=== PATIENT | female | born 1995 | race Caucasian/White ===

== ENCOUNTER 2018-07-03 08:10 | Emergency (ER) | payer OTHER, SELFPAY ==
[2018-07-03 08:12] VITALS: BP 136/82; PULSE 144; RESP 18; TEMP 37.7; O2SAT 96; BMI 38.9
[2018-07-03 08:21] VITALS: BP 134/74; PULSE 122; RESP 24; O2SAT 96; O2SAT 97
--- NOTE | 2018-07-03 08:35 | ED.VISSUMM ---
- ER Visit Summary Date of Service: 07/03/18 Chief Complaint: Fever History of Present Illness: The patient is a 22 F past family history of depression and asthma. Last started feeling ill with fever cough, sore throat and body aches. Saw her primary care physician on Tuesday Dr. Akash Chaudhary diagnosed with influenza and started on Tamiflu. Patient states she does not getting better. She has had a nonproductive cough. And a fever this morning as high as 103. No dysuria. No abdominal pain. No diarrhea. Physical Examination: Vital signs are stable. Temperature is 99. He does not look septic or toxic. Her pulse ox is 96% on room air. No hypoxia. HEENT exam dry mucous membranes otherwise unremarkable. TMs normal. Posterior pharynx unremarkable. Neck nontender. No lymphadenopathy. No meningismus. Lungs dry cough but no rales, rhonchi or currently any wheezing. Heart tachycardic rate about 130 no murmur. Abdomen is soft nontender. Normal bowel sounds no peritoneal signs. Both the right upper and right lower quadrants are unremarkable. Patient is moving all 4 extremities. They are neurovascularly intact. Nontender. There is no hot, red or swollen joints. Back nontender. Skin unremarkable. Neurologically awake and alert with no focal motor deficits. Test Results: Chest x-ray 2 views show left lower lobe infiltrate consistent with pneumonia. A menstrual cycle for 4 months so it was decided that we would check a serum level was negative. Emergency Department Course and Treatment: 1 L normal saline. Repeat exams at 0953 and 1055 patient is doing well. She is comfortable being discharged home. She is received a liter of normal saline. P.o. Zithromax. We will placed on Zithromax prescription at home. Treatment Plan: Fluids and rest. Alternate Tylenol and Motrin for fever. Zithromax Z-CHOLO. Follow-up with primary care physician if not improving. Disposition: Discharge Impression: Post influenza left lower lobe pneumonia. This note was generated with [employer] dictation software. It may contain incorrect words, spelling, and punctuation that were not noted in review of the chart prior to signing ED Disposition - Plan for ED Patient: Referrals: Akash Chaudhary III, MD [Primary Care Provider] -
--- NOTE | 2018-07-03 08:38 | ED.DCSUM_ITS ---
- ER Visit Summary Date of Service: 07/03/18 Chief Complaint: Fever History of Present Illness: The patient is a 22 F past family history of depression and asthma. Last started feeling ill with fever cough, sore throat and body aches. Saw her primary care physician on Tuesday Dr. Akash Chaudhary diagnosed with influenza and started on Tamiflu. Patient states she does not getting better. She has had a nonproductive cough. And a fever this morning as high as 103. No dysuria. No abdominal pain. No diarrhea. Physical Examination: Vital signs are stable. Temperature is 99. He does not look septic or toxic. Her pulse ox is 96% on room air. No hypoxia. HEENT exam dry mucous membranes otherwise unremarkable. TMs normal. Posterior pharynx unremarkable. Neck nontender. No lymphadenopathy. No meningismus. Lungs dry cough but no rales, rhonchi or currently any wheezing. Heart tachycardic rate about 130 no murmur. Abdomen is soft nontender. Normal bowel sounds no peritoneal signs. Both the right upper and right lower quadrants are unremarkable. Patient is moving all 4 extremities. They are neurovascularly intact. Nontender. There is no hot, red or swollen joints. Back nontender. Skin unremarkable. Neurologically awake and alert with no focal motor deficits. Test Results: Chest x-ray 2 views show left lower lobe infiltrate consistent with pneumonia. A menstrual cycle for 4 months so it was decided that we would check a serum level was negative. Emergency Department Course and Treatment: 1 L normal saline. Repeat exams at 0953 and 1055 patient is doing well. She is comfortable being discharged home. She is received a liter of normal saline. P.o. Zithromax. We will placed on Zithromax prescription at home. Treatment Plan: Fluids and rest. Alternate Tylenol and Motrin for fever. Zithromax Z-CHOLO. Follow-up with primary care physician if not improving. Disposition: Discharge Impression: Post influenza left lower lobe pneumonia. This note was generated with [email or web address] dictation software. It may contain incorrect words, spelling, and punctuation that were not noted in review of the chart pr ior to signing ED Disposition - Plan for ED Patient: Referrals: Akash Chaudhary III, MD [Primary Care Provider] -
--- NOTE | 2018-07-03 09:25 | RAD_ITS ---
STUDY: X-RAY CHEST REASON FOR EXAM: Female, 22 years old. Cough and fever. TECHNIQUE: PA and lateral views of the chest. COMPARISON: None. FINDINGS: Infiltration in the left lower lobe.. There is no demonstrated pleural abnormality. Normal size heart. Normal mediastinum and angela. Normal visualized pulmonary arteries. Normal visualized aortic arch and descending thoracic aorta. Normal visualized thoracic spine. Normal visualized ribs, clavicles, and shoulders. There is no demonstrated abnormality of the visualized soft tissue structures of the upper abdomen. RAD/Chest PA and Lateral IMPRESSION: Left lower lobe infiltration. Electronically Signed: Rigoberto Reno MD at 9:52 EST , Service support ,
[2018-07-03] MEDS: 0.9% Normal Saline 1,000 ML 1000 ML IV (09:27)
[2018-07-03 10:12] LABS: Pregnancy, Serum, hCG Quali. NEGATIVE Negative (0-9 Nonpreg)
--- NOTE | 2018-07-03 10:56 | ED.DEP ---
ED Disposition - Plan for ED Patient: Disposition: Home or Assisted Living Instructions: ED Pneumonia Adult, ED Flu Prescriptions: Azithromycin [Zithromax] 250 mg PO DAILY #4 tab Referrals: Akash Chaudhary III, MD [Primary Care Provider] - 3-5 Days if not improving Additional Instructions: Plenty of fluids and rest. Alternate Tylenol and Motrin for Zithromax 1 pill a day for 4 more days starting tomorrow. Return to the ER feeling worse or follow-up your primary care physician if not improving.
[2018-07-03] MEDS: Azithromycin 250 MG Tablet 500 MG PO (11:00)
[2018-07-03 11:07] VITALS: PULSE 95; RESP 18; O2SAT 96
== END 2018-07-03 11:08 | disposition home or self-care (01) ==
PROVIDERS: Emergency Provider Emergency Medicine; Family Provider Family Medicine; PCP Family Medicine
DX: J18.9 Pneumonia, unspecified organism (principal)
CPT/HCPCS: 71046; 84703; 96360; 99284; J7030; A4216

== ENCOUNTER → 2020-12-29 | Outpatient (CLI) | payer OTHER, SELFPAY ==
[2021-01-01 03:07] LABS: Chlamydia By Nucleic Acid AMP Negative (Negative)
[2021-01-01 09:00] LABS: Gonococcus By Nucleic Acid AMP Negative (Negative)
[2021-01-01 13:30] LABS: HPV Reflexed? NOT INDICATED
== END | disposition home or self-care (01) ==
LOC: LABSPEC 17:04
PROVIDERS: PCP Family Medicine; Visit Provider Obstetrics & Gynecology
DX: Z12.4 Encounter for screening for malignant neoplasm of cervix (principal); Z11.3 Encounter for screening for infections with a predominantly sexual mode of transmission
CPT/HCPCS: 87491; 87591; 88175; G0145

== ENCOUNTER → 2020-12-31 15:41 | Outpatient (CLI) | payer OTHER, SELFPAY ==
[2020-12-31 17:46] LABS: Absolute Lymphocyte Count 2.57 X10^3/uL (0.83-4.51); Absolute Neutrophil Count 7.4 X10^3/uL (2.0-7.7); Basophil# 0.02 X10^3/uL; Basophil% 0.2 % (0-1); Eosinophil# 0.08 X10^3/uL; Eosinophils% 0.7 % (0-5); Hematocrit 36.5 % (37-47); Hemoglobin 12.1 g/dL (12.0-15.0); Lymphocyte # 2.57 X10^3/ul (0.83-4.51); Lymphocyte % 23.8 % (19-41); Mean Corp Hgb Conc 33.2 g/dL (32-36); Mean Corpuscular Hgb 29.7 pg (27.0-32.0); Mean Corpuscular Volume 89.7 fL (81-99); Monocyte# 0.74 X10^3/uL; Monocyte% 6.9 % (0-10); NRBC Flagged by Analyzer 0 % (0-5); Neutrophil # 7.36 X10^3/uL (2.7-7.7); Neutrophil % 68.1 % (47-70); Platelet Count 201 K/mm3 (150-450); RBC Distribution Width CV 12.6 % (11.6-14.6); RBC Distribution Width SD 41.3 fl (35.1-43.9); Red Blood Count 4.07 M/mm3 (4.2-5.4); White Blood Count 10.8 K/mm3 (4.4-11.0)
[2020-12-31 17:55] LABS: Glucose Challenge Gest 1H 50g 95 mg/dL (70-140)
[2021-01-01 10:39] LABS: HIV - WCH Non-Reactive (Nonreactive); Hepatitis B Surface Antigen Non-Reactive (Nonreactive); Hepatitis C Antibody Non-Reactive (Nonreactive); Rubella IgG Reactive (Nonreactive); Syphilis Antibodies Non-reactive
== END ==
PROVIDERS: PCP Family Medicine; Visit Provider Obstetrics & Gynecology
DX: Z34.81 Encounter for supervision of other normal pregnancy, first trimester (principal)
CPT/HCPCS: 36415; 82950; 85025; 86703; 86762; 86780; 86803; 87086; 87088; 87340

== ENCOUNTER → 2021-04-06 15:29 | Outpatient (CLI) | payer OTHER, SELFPAY ==
[2021-04-06 16:48] LABS: Hematocrit 37.3 % (37-47); Hemoglobin 12.2 g/dL (12.0-15.0); Mean Corp Hgb Conc 32.7 g/dL (32-36); Mean Corpuscular Hgb 29.7 pg (27.0-32.0); Mean Corpuscular Volume 90.8 fL (81-99); Mean Platelet Vol. 9.9 fl (6.2-12.0); Platelet Count 220 K/mm3 (150-450); RBC Distribution Width CV 12.4 % (11.6-14.6); RBC Distribution Width SD 40.7 fl (35.1-43.9); Red Blood Count 4.11 M/mm3 (4.2-5.4); White Blood Count 12.2 K/mm3 (4.4-11.0)
[2021-04-06 17:05] LABS: Glucose Challenge Gest 1H 50g 87 mg/dL (70-140)
== END ==
PROVIDERS: PCP Family Medicine; Visit Provider Obstetrics & Gynecology
DX: Z34.82 Encounter for supervision of other normal pregnancy, second trimester (principal)
CPT/HCPCS: 36415; 82950; 85027

== ENCOUNTER → 2021-04-27 14:28 | Outpatient (CLI) | payer OTHER, SELFPAY | PROVIDERS: Visit Provider Obstetrics & Gynecology | DX: Z34.83 Encounter for supervision of other normal pregnancy, third trimester (principal) | CPT/HCPCS: 36415; 86850 ==

== ENCOUNTER 2021-06-19 16:20 | Outpatient (CLI) | payer OTHER, SELFPAY ==
[2021-06-19] VITALS (8 sets, daily range): BP systolic 112–122; BP diastolic 56–75; PULSE 80–94; TEMP 36.3; BMI 39.8
--- NOTE | 2021-06-22 08:54 | OB.TRI.NOTE ---
HPI - General HPI Narrative DARRIUS CAMPO, is a 25 F who presents to labor and delivery at 35 weeks 5 days gestation with decreased movement and elevated blood pressures noted at home. She denies any other PIH symptoms. PFSH PFSH Home Medications omeprazole 20 mg PO DAILY 06/19/21 [History Last Taken Unknown] prenat vit-iron [id number] [Prena-Cap] 1 cap PO DAILY 06/19/21 [History Last Taken Unknown] sertraline [Zoloft] 50 mg PO DAILY 06/19/21 [History Last Taken Unknown] Allergy/AdvReac Type Severity Reaction Status Date / Time amoxicillin Allergy Rash Verified 06/19/21 16:45 cefdinir [From Omnicef] Allergy Angioedema Verified 06/19/21 16:45 Social History Smoking Status: Never smoker Assessment & Plan (1) Decreased movement: PLAN: 35+ week IUP with decreased movement. Blood pressures normal in labor and delivery. Reactive heart tones noted. Occasional contraction but mild. Patient discharged to home with routine labor instructions. Instructed to increase rest on left side for the next 1 to 2 days and return the office for blood pressure check next week.
== END 2021-06-19 23:59 | disposition home or self-care (01) ==
LOC: WPOUT 16:35 → WP 16:35
PROVIDERS: Referring Provider Obstetrics & Gynecology; Visit Provider Obstetrics & Gynecology
DX: O36.8130 Decreased fetal movements, third trimester, not applicable or unspecified (principal); Z3A.35 35 weeks gestation of pregnancy; R03.0 Elevated blood-pressure reading, without diagnosis of hypertension
CPT/HCPCS: 59025; 59050; 99218; G0378

== ENCOUNTER 2021-06-26 14:58 | Outpatient (CLI) | payer OTHER, SELFPAY | END 2021-06-26 23:59 | disposition home or self-care (01) | LOC: LABSPEC 14:59 | PROVIDERS: Visit Provider Obstetrics & Gynecology | DX: Z36.85 Encounter for antenatal screening for Streptococcus B (principal) | CPT/HCPCS: 87081 ==

== ENCOUNTER 2021-07-03 21:45 | Inpatient (IN) | payer OTHER, SELFPAY ==
[2021-07-03 21:09] VITALS: BP 127/74; PULSE 94; O2SAT 99
[2021-07-03 21:12] VITALS: TEMP 35.7
[2021-07-03 21:16] VITALS: BMI 40.2
[2021-07-03 21:37] LABS: ROM Internal Control Test YES-OK TO RESULT pt. (Internal QC)
[2021-07-03 21:38] LABS: ROM Patient Test POSITIVE (Negative)
[2021-07-03 22:13] VITALS: TEMP 36.6
[2021-07-03] MEDS: Lactated Ringers 1,000 ML 50 ML IV (22:30)
[2021-07-03 22:41] VITALS: BP 119/71; PULSE 88
[2021-07-03 22:43] VITALS: PULSE 89; O2SAT 98
[2021-07-03 23:14] LABS: Absolute Neutrophil Count 9.1 X10^3/uL (2.0-7.7); Basophil# 0.03 X10^3/uL; Basophil% 0.2 % (0-1); Eosinophil# 0.13 X10^3/uL; Hematocrit 37.2 % (37-47); Hemoglobin 12.4 g/dL (12.0-15.0); Lymphocyte % 20.8 % (19-41); Mean Corp Hgb Conc 33.3 g/dL (32-36); Mean Corpuscular Hgb 29.3 pg (27.0-32.0); Mean Corpuscular Volume 87.9 fL (81-99); Mean Platelet Vol. 10.6 fl (6.2-12.0); Monocyte% 6.9 % (0-10); NRBC Flagged by Analyzer 0 % (0-5); Neutrophil # 9.11 X10^3/uL (2.7-7.7); Neutrophil % 70.2 % (47-70); Platelet Count 217 K/mm3 (150-450); RBC Distribution Width CV 12.7 % (11.6-14.6); Red Blood Count 4.23 M/mm3 (4.2-5.4)
[2021-07-04] VITALS (56 sets, daily range): BP systolic 104–140; BP diastolic 50–91; PULSE 84–117; RESP 16–18; TEMP 35.1–36.9; O2SAT 97–100
[2021-07-04] MEDS: Ondansetron 4 MG/2 ML Vial IV (02:34)
[2021-07-04] MEDS: Lactated Ringers 500 ML 999 ML IV (03:06)
[2021-07-04] MEDS: fentaNYL-bupivacaine (epidural) 100 ML BAG EPIDURAL ×2 (04:40→08:42)
[2021-07-04] MEDS: Lactated Ringers 1,000 ML 200 ML IV ×2 (07:34→08:43)
[2021-07-04] MEDS: Acetaminophen 500 MG Tablet PO (09:46)
[2021-07-04] MEDS: Oxytocin 30 units/NS 500 ml 30 UNITS/500 ML IV.SOLN 334 UNITS IV (11:51)
[2021-07-04] MEDS: Methylergonovine 0.2 MG/ML Ampul IM (11:55)
--- NOTE | 2021-07-04 12:05 | PCM.HP.BLA ---
History and Physical Date of Admission: 07/03/21 ACOG ANTEPARTUM RECORD - HISTORY AND PHYSICAL (07/04/2021) Name: BRITTNEY CAMPO History of this : This is a 25 year old [id number] presents at 37 wks + 5 days gestation in labor with SROM. 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 : 1995 Age: 25 Address: [address] [place] [address] [place] [address] Phone: H) [phone] Insurance Carrier: [facility] [id number] Emergency Contact: TOMAS CAMPO/ [phone] ...................................................................... Final KRYSTAL: 07/19/21 By Ultrasound: PARITY: (G-Total Pregnancies P-Fullterm,Premature,Induced AB,Spont AB, Ectopics, Multiple,Living) KRYSTAL CONFIRMATION: By LMP: 10/12/20 Final KRYSTAL: 07/19/21 OB PROBLEM LIST: ALLERGIES: Amoxicillin and Omnicef!! Declines genetic and carrier screening Depression, takes Zoloft (past counseling as well) Epidural and planned; office chiildbirth and classes enc. Past asthma hx, hasn't used rescue inhaler in a long time [facility] transfer (Letrozole used) , with Dr. 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 Illicit Drug Use - denies use of street drugs Sexual Activity - Residence - lives with Place of - [place], [place] Hours Worked - 40 hours per week Spouse-Sig Other Name - Tomas Campo Spouse-Sig Other Occupation - [employer] lift truck mechanic Spouse-Sig Other Phone No - [phone] PRIOR DELIVERY HISTORY DEL DATE GEST LAB WT LB WT OZ TYPE ANES LABOR TX ANTEPARTUM FLOW CHART VISIT GE RTC FU F F CA U U DATE WK MD WKS HT PN HR M SS BP ED WT CA GL D EF ST __ ____ ___ __ __ ___ __ __ __ ___ __ __ __ ___ __ 25 Feb 37 JM 1 37 V + + 124/72 0 254 - - 18 Feb 36 SHM 1 36 V + + 122/84 sl 254 - - 1 50 -3 08 Feb 35 JM 2 35 V + + 122/74 0 247 tr - May JM 2 33 V + + O 122/84 sl 246 tr - Jun 07 JM 4 30 V + + O 128/64 0 239 tr - May 05 JM 2 28 - + + 108/72 0 232 1+ - Apr 02 JM 3 - - + + 106/74 sl 234 - - 29 Feb 25 JM 4 - - on + 122/68 0 228 tr - 20 Jan 21 JM 5 15 - + O 118/78 0 228 tr - Dec 17 JM 4 11 - on O 114/72 0 233 tr - ANTEPARTUM NOTE(S): Jul 03 2021: Jun 26 2021: Jun 16 2021: pelvic pain, gilberto merida Jun 01 2021: no concerns May 14 2021: doing well Apr 27 2021: antibody screen and Rhogam Apr 06 2021: 1 hr GTT Mar 06 2021: Sono and PNV today, Feeling Well Jan 26 2021: worsening depression Dec 29 2020: pap, cultures, labs COMPREHENSIVE ANTEPARTUM NOTE(S): Jul 03 2021: Brittney is 37w5d good FM no edema. Doing well would like Cx checked today. BR Jul 03 2021: 37 weeks, GBS negative. CE 1cm. JM Jul 02 2021: H taken to OB. tkg Jun 26 2021: Brittney is 35w6d here for PNV. good FM slight edema. Doing welll did have an episode of high BP last tuesday at work 150/90s but has been fine ever since she left labor and delivery. Good BP today. 122/84. GBS and LARC consent today. BR Jun 26 2021: US for FHTs. Growth obtained EFW 2790g (33rd%). Preeclampsia precautions. GBS obtained. Jun 16 2021: Brittney is here for a pnv at 35/2. Good FM. No edema present. Increased presence of pelvic pain, states she has noticed some cramping and lower back pain. Last Tuesday she states she felt very sick and crampy, this has since resolved. No further concerns expressed. MK Jun 16 2021: 35wks, GBS next visit. JM Jun 01 2021: Brittney is here for pnv at 33/1. Good FM. Sl edema present in fingers and feet. No concerns expressed at this time, doing well. MK Jun 01 2021: 33wks, no complaints. May 14 2021: Brittney is here today for PNV. 30w4d. Positive movement no edema. Doing well. Does have some questions pertaining to Tdap and babys weight and postion, BR May 14 2021: 30wks, for tdap. Apr 27 2021: Brittney is here for a pnv w/ mother at 28/1. Good FM. No edema present. 24 hr stomach virus over the weekend, pt is feeling better now. Was unable to keep down liquids so she is slightly dehydrated. Pushing fluids as tolerated. Antibody screen and Rhogam given, pt is O-. Apr 27 2021: 28 weeks, 1 hour GTT today. Apr 06 2021: Brittney is here for a PNV at /. Good FM. Sl edema present in fingers and ankles. Pt states she has been feeling nauseated for awhile. 1 hr GTT drawn today, pt is O-. Will need Rhogam and antibody screen at next visit. Apr 06 2021: 25 weeks, 1 hour GTT today. Mild nausea, declines medications. Discussed hydration and small meals. Discussed exercise and weight gain in . For RhoGam next visit. Mar 06 2021: 20 weeks, anatomy ultrasound within normal limits. Gender reveal today. Educated on weight gain in . Had early 1 hour GTT, will repeat 1 hour GTT and RhoGam at 28 weeks. Jan 26 2021: Brittney is here w/ her mother for a PNV. 15 wks. N/V completely resolved. Denies cramping and spotting. Reports worsening depression. Currently on 25 mg of Zoloft, prescribed by Dr. Chaudhary. Would like to increase dose and discuss. Jan 26 2021: 15 weeks, with increased depression currently on Zoloft 25 mg. Will increase to Zoloft 50 mg daily. Overall feels stable but can feel herself becoming more depressed. Educated on intrapartum and depression. For anatomy ultrasound next visit. Dec 29 2020: Brittney is here for her first PNV at this practice w/ her . This is the patient's first . Nausea and vomiting present, pt occasionally takes vitamin B6 to treat. Denies spotting or cramping. Voices no concerns today. Will do pap and cultures along w/ labs today, consent signed. Educational materials given. Dec 29 2020: 11wk, transfer from [facility] Dr. Curry with FINAL KRYSTAL: 07/19/21 LMP c/w 6wk U/s. was letrozole . For aspirin. Abnormal insulin levels prior to , lost 30 pounds to get . For early 1 hour GTT with panel before next visit. Risk benefits alternatives of genetic screening was discussed and carrier screening, patient declines. Pap and cultures collected to Dec 25 2020: NOB TELEHEALTH VISIT, 60 MINUTE DURATION. Brittney is a 25 year old with an KRYSTAL of 07/19/2021, and current GA is 10 w 4 d. She is transferring care from [facility], and she states that she took Letrozole to help achieve . Brittney reports that she had one US and two HCG Quant draws at [facility], then she was released for care at this office. She states that she and her , Tomas, are very hap REVIEW OF SYSTEMS: GENERAL - Denies fever, or chills SKIN - Denies rash, new skin lesions, or change in moles EYES - Denies blurred vision, or change in visual acuity EARS - Denies ear pain, or difficulty hearing NOSE - Denies nasal congestion, discharge, or bleeding MOUTH - Denies sore throat, or difficulty swallowing NECK - Denies pain or swelling RESPIRATORY - Denies shortness of breath, cough, wheezing CARDIOVASCULAR - Denies palpitations, chest pain, orthopnea, PND, peripheral edema, syncope or claudication GASTROINTESTINAL - Denies nausea, vomiting, diarrhea, constipation, Denies abdominal pain, melena and or bright red blood GENITOURINARY - Denies dysuria, frequency of urination, urgency, or hesitancy MUSCULOSKELETAL - Denies joint or muscle pain, or back pain NEUROLOGICAL - Denies localized numbness, weakness, or tingling PSYCHIATRIC - Denies depression, anxiety, substance abuse or suicide attempts ENDOCRINE - Denies heat or cold intolerance, weight loss or gain, increasing thirst HEMATO-IMMUNOLOGIC - Denies easy bruising, bleeding, oral ulcerations or recurrent infections GENETICS SCREENING: Age 35+ years: No Thalassemia: No Neural Tube Defect: No Down Syndrome: No KATRINA-SACHS: No Sickle Cell Disease: No Hemophilia: No Musc. Dystrophy: No Cystic Fibrosis: No-declines screening [place] Chorea: No Mental Retardation: No Fragile X: No Other genetic: No Other defects: No SABs/still births: No Drugs since LMP: No INFECTION HISTORY: High risk AIDS: No High risk Hepatitis: No Exposed to TB: No Exposed to Herpes: No Rash/viral illness since LMP: No History of STD: No MENSTRUAL HISTORY: *Menses Amount/Duration: 5 days and normal amountMenses Regularity: Regular x last 6-8 monthsBCP's at Conception: NoMenarche (Age Onset): 10* PAST SUMMARY: PARITY: 1. Total Pregnancies............ 1 2. Full Term Pregnancies........ 0 3. Premature.................... 0 4. Abortions - Induced.......... 0 5. Abortions - Spontaneous...... 0 6. Ectopics..................... 0 7. Multiple Births.............. 0 8. Living Children.............. 0 PHYSICAL EXAMINATION General Appearence: 25 yo female in no acute distress Vital Signs: AF, VSS Heart: RRR without rubs or gallops Lungs: CTA x 2 Breasts: deferred Abdomen: gravid Pelvis: Cervix: Presentation: cephalic Station: Fetus: Size: AGA Movement: present Heart: present LAB TEST(S) ORDERED SINCE:10/22/20 04/27/2021 [id number] 04/06/2021 GLUCOSE CHALLENGE GEST 1H 50G 04/06/2021 CBC-COMPLETE BLOOD CNT NO DIFF 01/02/2021 URINE CULTURE 01/01/2021 RUBELLA IGG 01/01/2021 PAP I-G W/RFX HRHPV-APTIMA 01/01/2021 L509.8000 01/01/2021 HIV - [facility] 01/01/2021 HEPATITIS C ANTIBODY 01/01/2021 HEPATITIS B SURFACE ANTIGEN 01/01/2021 CHLAMYDIA/GC LORI APTIMA 12/31/2020 T AND S-NO CHARGE W/PNP 12/31/2020 GLUCOSE CHALLENGE GEST 1H 50G 12/31/2020 CBC W/DIFF, AUTOMATED 07/03/2021 TYPE AND SCREEN 07/03/2021 COVID 19 AG RAPID (RN COLLECT) 07/03/2021 CBC W/DIFF, AUTOMATED 07/03/2021 (ROM) RUPTURE OF MEMBRANES 06/29/2021 RULE OUT BETA STREP (GRP. B) == ==== Order Observation Description Value Ref_Range A* Site == ==== Labor [facility]~[address], [address]~ TYPE AND SCRE AB SCREEN GEL NEGATIVE ML CBC W/DIFF, AUT NOTE BRYAN CBC W/DIFF, AUT WBC 13.0 K/mm3 4.4-11.0 H ML CBC W/DIFF, AUT RBC 4.23 M/mm3 4.2-5.4 ML CBC W/DIFF, AUT HGB 12.4 g/dL 12.0-15.0 ML CBC W/DIFF, AUT HCT 37.2 37-47 ML CBC W/DIFF, AUT MCV 87.9 fL 81-99 ML CBC W/DIFF, AUT MCH 29.3 pg 27.0-32.0 ML CBC W/DIFF, AUT MCHC 33.3 g/dL 32-36 ML CBC W/DIFF, AUT RDW CV 12.7 11.6-14.6 ML CBC W/DIFF, AUT RDW SD 40.0 fl 35.1-43.9 ML CBC W/DIFF, AUT PLT 217 K/mm3 150-450 ML CBC W/DIFF, AUT MPV 10.6 fl 6.2-12.0 ML CBC W/DIFF, AUT NEUT% 70.2 47-70 H ML CBC W/DIFF, AUT LY% 20.8 19-41 ML CBC W/DIFF, AUT MONO% 6.9 0-10 ML CBC W/DIFF, AUT EO% 1.0 0-5 ML CBC W/DIFF, AUT BASO% 0.2 0-1 ML CBC W/DIFF, AUT IG% 0.900 0.0-0.9 ML IG% - Immature Granulocytes (promyelocytes, myelocytes and metamyelocytes) > 1% indicates that a LEFT SHIFT is Present. CBC W/DIFF, AUT ABSOLUTE NEUT 9.1 X10 3/uL 2.0-7.7 H ML CBC W/DIFF, AUT ABSOLUTE LYMPH 2.70 X10 3/uL 0.83-4.51 ML CBC W/DIFF, AUT NUCLEATED RBC 0 0-5 ML COVID 19 AG RAP NOTE BRYAN (ROM) RUPTURE O NOTE BYRAN (ROM) RUPTURE O ROM POSITIVE Negative A ML Amniotic fluid present indicates rupture of Membranes. RESULTS CALLED TO DENICE WONG RN WP 07/03/[id number] Rob [place]. REPORT READ BACK BY SAME . RULE OUT BETA S NOTE [facility]~[address], [address]~ [id number] AB SCREEN GEL NEGATIVE ML GLUCOSE CHALLEN NOTE BRYAN GLUCOSE CHALLEN GLU GEST 50G 1H 87 mg/dL 70-140 ML CBC-COMPLETE BL NOTE BRYAN CBC-COMPLETE BL WBC 12.2 K/mm3 4.4-11.0 H ML CBC-COMPLETE BL RBC 4.11 M/mm3 4.2-5.4 L ML CBC-COMPLETE BL HGB 12.2 g/dL 12.0-15.0 ML CBC-COMPLETE BL HCT 37.3 37-47 ML CBC-COMPLETE BL MCV 90.8 fL 81-99 ML CBC-COMPLETE BL MCH 29.7 pg 27.0-32.0 ML CBC-COMPLETE BL MCHC 32.7 g/dL 32-36 ML CBC-COMPLETE BL RDW CV 12.4 11.6-14.6 ML CBC-COMPLETE BL RDW SD 40.7 fl 35.1-43.9 ML CBC-COMPLETE BL PLT 220 K/mm3 150-450 ML CBC-COMPLETE BL MPV 9.9 fl 6.2-12.0 ML URINE CULTURE NOTE BRYAN HEPATITIS C ANT NOTE BRYAN HEPATITIS C ANT HEPATITIS C AB Non-Reactive Nonreactive ML Non Reactive: < 0.8 Equivocal: >/= 0.8 to < 1.0 Reactive: >/= 1.0 The CDC recommends that a reactive/equivocal HCV antibody result be followed up by the HCV Nucleic Acid Amplification test ([id number]) HEPATITIS B AMARI NOTE BRYAN HEPATITIS B AMARI HEP B SURF AG Non-Reactive Nonreactive ML HIV - WC NOTE BRYAN HIV - [facility] HIV Non-Reactive Nonreactive ML L509.8000 NOTE BRYAN L509.8000 SYPHILIS ABS Non-reactive ML RUBELLA IGG NOTE BRYAN RUBELLA IGG RUBELLA IGG Reactive Nonreactive ML Antibody Results Interpretation of Immune Status Non Reactive Presumed Non-Immune Equivocal Equivocal Reactive Presumed Immune PN N [facility]~[address] [place], [address]~ T AND AB SCREEN GEL NEGATIVE ML GLUCOSE CHALLEN NOTE BRYAN GLUCOSE CHALLEN GLU GEST 50G 1H 95 mg/dL 70-140 ML CBC W/DIFF, AUT NOTE BRYAN CBC W/DIFF, AUT WBC 10.8 K/mm3 4.4-11.0 ML CBC W/DIFF, AUT RBC 4.07 M/mm3 4.2-5.4 L ML CBC W/DIFF, AUT HGB 12.1 g/dL 12.0-15.0 ML CBC W/DIFF, AUT HCT 36.5 37-47 L ML CBC W/DIFF, AUT MCV 89.7 fL 81-99 ML CBC W/DIFF, AUT MCH 29.7 pg 27.0-32.0 ML CBC W/DIFF, AUT MCHC 33.2 g/dL 32-36 ML CBC W/DIFF, AUT RDW CV 12.6 11.6-14.6 ML CBC W/DIFF, AUT RDW SD 41.3 fl 35.1-43.9 ML CBC W/DIFF, AUT PLT 201 K/mm3 150-450 ML CBC W/DIFF, AUT MPV 10.0 fl 6.2-12.0 ML CBC W/DIFF, AUT NEUT% 68.1 47-70 ML CBC W/DIFF, AUT LY% 23.8 19-41 ML CBC W/DIFF, AUT MONO% 6.9 0-10 ML CBC W/DIFF, AUT EO% 0.7 0-5 ML CBC W/DIFF, AUT BASO% 0.2 0-1 ML CBC W/DIFF, AUT IG% 0.300 0.0-0.9 ML IG% - Immature Granulocytes (promyelocytes, myelocytes and metamyelocytes) > 1% indicates that a LEFT SHIFT is Present. CBC W/DIFF, AUT ABSOLUTE NEUT 7.4 X10 3/uL 2.0-7.7 ML CBC W/DIFF, AUT ABSOLUTE LYMPH 2.57 X10 3/uL 0.83-4.51 ML CBC W/DIFF, AUT NUCLEATED RBC 0 0-5 ML PAP I-G W/RFX H NOTE BRYAN PAP I-G W/RFX H DIAG Comment . [facility] NEGATIVE FOR INTRAEPITHELIAL LESION OR MALIGNANCY. PAP I-G W/RFX H ADEQ Comment . [facility] Satisfactory for evaluation. Endocervical and/or squamous metaplastic cells (endocervical component) are present. PAP I-G W/RFX H PERFORM Comment . [facility] Lucian Rueda Support Merchandiser (ASCP) This liquid based ThinPrep(R) pap test was screened with the use of an image guided system. PAP I-G W/RFX H COMM . . [facility] PAP I-G W/RFX H PAPSMR Comment . [facility] The Pap smear is a screening test designed to aid in the detection of premalignant and malignant conditions of the uterine cervix. It is not a diagnostic procedure and should not be used as the sole means of detecting cervical cancer. Both false-positive and false-negative reports do occur. PAP I-G W/RFX H HPV RFLX Comment . [facility] The HPV DNA reflex criteria were not met with this specimen result therefore, no HPV testing was performed. Performed at: - [address], [place] [id number] Livestock Buyer: Britt Bowden MD, Phone: [phone] CHLAMYDIA/GC NA NOTE BRYAN CHLAMYDIA/GC NA CHLAMY,NUC ACID Negative Negative [facility] CHLAMYDIA/GC NA GC BY NUC ACID Negative Negative [facility] Performed at: =[address] [place] [id number] Livestock Buyer: Britt Bowden MD, Phone: [phone] O NEGATIVE *Negative results from patients with symptom onset beyond five days should be treated as presumptive and confirmed by a molecular assay if clinically necessary. Negative results should not be used as the sole basis for treatment or for patient management. COVID 19 AG RAPID (RN COLLECT) *Positive results do not differentiate between SARS-CoV and SARS-CoV-2. If differentation of the specific SARS virus is desired an additional sample and an additional order is required. COVID 19 AG RAPID (RN COLLECT) * This test has not been FDA cleared or approved; the test has been authorized by FDA under an Emergency Use Authorization (EAU) for use by laboratories certified under CLIA that meet the requirements to perform moderate, high, or waived complexity tests. COVID 19 AG RAPID (RN COLLECT) Normal Reference Range: Negative SARS-CoV-2 (COVID 19) Negative RAPID METHOD [employer] COVID19 Ag Card Group B Beta Streptococcus is not isolated. Below infection level. Mixed Gram Positive Organisms [place] Count 1000-10,000 O NEGATIVE == ==== Impression /Plan: 37 wks + 6 days intrauterine in labor with SROM. Preparations in progress for delivery.
--- NOTE | 2021-07-04 12:07 | EX.PCM.OBRPT ---
Maternal Data Information Final KRYSTAL: 07/19/21 Final KRYSTAL Source: US <20 weeks Gestational age: 37w6d Vaginal Delivery Maternal Presentation Maternal Presentation: Spontaneous Rupture of Membranes Operative Information Date of Procedure: 07/04/21 Pre-Operative Diagnosis: IUP Post-Operative Diagnosis: IUP Surgery / Procedure Performed: Spontaneous Vaginal Delivery Type of Anesthesia: Epidural Estimated Blood Loss: 350 cc Findings Description of Procedure: Spontaneous vaginal delivery of a viable female with Apgars of 8/9 from an occiput anterior presentation with clear amniotic fluid and normal three-vessel placenta. No episiotomy. First-degree midline laceration repaired with 3-0 Rapide suture under epidural. Sponges okay. Delivery physician: García Hebert MD. Presentation: Vertex Amniotic Membrane Rupture Type: Spontaneous Amniotic Fluid Description: Clear Placental Delivery Description: Spontaneous Placenta Disposition: [facility] Cord Vessel Description: 3 Vessels Cord Entanglement: None Infant A Gender: Female (1 minute): 8 (5 minute): 9 Post Vaginal Delivery Medications Given After Delivery: IV Pitocin and IM Methergin Episiotomy Description: None Laceration: Midline and 1st degree Complication Complications: None
[2021-07-04] MEDS: Sertraline 50 MG Tablet PO (14:36)
[2021-07-04] MEDS: Acetaminophen 500 MG Tablet 1000 MG PO (17:25)
[2021-07-05] MEDS: Acetaminophen 500 MG Tablet 1000 MG PO ×3 (01:41→18:03)
[2021-07-05 04:50] VITALS: BP 112/78; PULSE 96; RESP 16; TEMP 36.3
[2021-07-05 08:10] VITALS: BP 109/79; PULSE 103; RESP 18; TEMP 36.7; O2SAT 96
--- NOTE | 2021-07-05 08:20 | PCM.PN.OB ---
Subjective Subjective Patient without complaints. Breast-feeding going well and minimal vaginal bleeding reported. Wants to go home today if baby is able to go. Objective Data Objective Data Vital Signs: Vital Signs Temp Pulse Resp BP Pulse Ox 97.3 F L 96 16 112/78 98 07/05/21 04:50 07/05/21 04:50 07/05/21 04:50 07/05/21 04:50 07/04/21 17:23 Oxygen Delivery Method Room Air Weight: 253 lb 6 oz Body Mass Index (BMI) 40.2 Intake & Output: Intake and Output for Last 24 Hours 07/03/21 07/04/21 07/05/21 23:59 23:59 23:59 Intake Total 2606.01 / 2606.01 Output Total 1900 / 1900 Balance 706.01 / 706.01 Lab / Micro Data Result Diagrams: 07/03/21 22:30 Labs: Laboratory Results - last 24 hr 07/04/21 17:40: Screen NEGATIVE, Baby's Blood Type A POSITIVE, Baby's KEY POSITIVE Micro: Microbiology 07/03/21 22:30 Nasal Secretion SARS-CoV-2 Antigen (Rapid) - Final Assessment & Plan (1) Spontaneous vaginal delivery: PLAN: Doing well day #1 status post routine spontaneous vaginal delivery. Will discharge to home with routine instructions if baby is able to be discharged.
--- NOTE | 2021-07-05 08:21 | PCM.DC ---
Discharge Instructions Diet Discharge Diet: No restrictions Activity Discharge Activity: May Drive (In 1 to 2 days if not taking narcotic pain medication), May Shower and May Take a Tub Bath May resume sexual activity in: 4-6 weeks Additional Activity Instructions:: Nothing in the vagina for 4-6 weeks. You may return to work/school in 6 weeks. Dressing / Incision Call your doctor if you observe: Fever of 101 or Higher, Inability to urinate, Inability to have a bowel movement and Using more than 1 pad per hour Follow Up Care Please Follow Up With: Romeo Quinteros MD When: Call [phone] to make an appointment with your doctor in 6 weeks. Test Results: Test results from this visit will be discussed in further detail at your follow-up appointment, if applicable. Discharge Plan Admission Admit Date/Time: 07/03/21 21:45 Primary Reason for Your Visit: Vaginal Delivery Attending Provider: García Hebert Primary Care Provider: Akash Black Discharge Orders/Prescriptions Prescriptions: No Action omeprazole 20 mg Capsule,Delayed Release(Dr/Ec) 20 mg PO DAILY RF: 0 sertraline [Zoloft] 50 mg Tablet 50 mg PO DAILY RF: 0 Prena-Cap 95-1-50 mg Capsule 1 cap PO DAILY RF: 0 Referrals / Follow Up: Akash Black MD [Primary Care Provider] - Disposition Disposition (needs filled in before D/C Order can be placed): Home, Self Care
[2021-07-05] MEDS: Senna/Docusate Sodium 1 Tablet PO (08:23)
[2021-07-05] MEDS: Sertraline 50 MG Tablet PO (10:11)
[2021-07-05] MEDS: Pantoprazole Sodium 20 MG Tablet PO (10:11)
[2021-07-05 12:14] VITALS: BP 105/72; PULSE 107; RESP 18; TEMP 36.7
[2021-07-05 16:13] VITALS: BP 122/76; PULSE 101; RESP 16; TEMP 36.9; O2SAT 95
[2021-07-05 19:45] VITALS: BP 116/73; PULSE 85; RESP 16; TEMP 36.8
[2021-07-06 01:30] VITALS: BP 121/62; PULSE 80; RESP 16; TEMP 36.4
--- NOTE | 2021-07-06 07:38 | PCM.DC.BLA ---
Discharge Summary Date of Admission: 07/04/21 Date of Discharge: 07/06/21 Summary: Patient arrived on 07/04/2021 in labor. Subsequently delivered on 07/04/2021. Routine recovery. Discharge home on 07/06/2021 Meaningful Use Info Meaningful Use Diagnoses (Choose all that apply): None applicable Discharge Plan Admission Admit Date/Time: 07/03/21 21:45 Primary Reason for Your Visit: Vaginal Delivery Attending Provider: García Hebert Primary Care Provider: Akash Black Instructions Additional Instructions / Restrictions: Regular diet. Routine activity. Okay to shower. No lifting over 25 pounds for 2 to 3 weeks. Call if fevers, chills, chest pain, shortness of breath, increased vaginal bleeding. Follow-up 2 weeks telehealth visit, 4 to 6 weeks Discharge Orders/Prescriptions Prescriptions: No Action omeprazole 20 mg Capsule,Delayed Release(Dr/Ec) 20 mg PO DAILY RF: 0 sertraline [Zoloft] 50 mg Tablet 50 mg PO DAILY RF: 0 Prena-Cap 95-1-50 mg Capsule 1 cap PO DAILY RF: 0 Referrals / Follow Up: Akash Black MD [Primary Care Provider] - Disposition Disposition (needs filled in before D/C Order can be placed): Home, Self Care
--- NOTE | 2021-07-06 07:39 | PCM.PN.OB ---
Subjective Subjective No overnight complaints Objective Data Objective Data Vital Signs: Vital Signs Temp Pulse Resp BP Pulse Ox 97.5 F L 80 16 121/62 H 95 07/06/21 01:30 07/06/21 01:30 07/06/21 01:30 07/06/21 01:30 07/05/21 16:13 Oxygen Delivery Method Room Air Weight: 253 lb 6 oz Body Mass Index (BMI) 40.2 Intake & Output: Intake and Output for Last 24 Hours 07/04/21 07/05/21 07/06/21 23:59 23:59 23:59 Intake Total 2606.01 / 2606.01 Output Total 1900 / 1900 Balance 706.01 / 706.01 Lab / Micro Data Result Diagrams: 07/03/21 22:30 Micro: Microbiology 07/03/21 22:30 Nasal Secretion SARS-CoV-2 Antigen (Rapid) - Final Physical Exam Const alert, oriented x3, no apparent distress, average body habitus, healthy appearing and well nourished HEENT normocephalic and moist oral mucous membranes Head and Scalp: atraumatic Face and Sinus: normal facial exam Neck full ROM Resp normal respiratory effort, no retractions and no use of accessory muscles GI GI Narrative: Soft, nontender, uterus firm and below umbilicus Extremity normal to inspection, full ROM and no clubbing, cyanosis or edema Psych mental status grossly normal, affect normal, speech normal and activity/motor behavior normal Assessment & Plan (1) Spontaneous vaginal delivery: PLAN: day 2. Breast-feeding. Pain well controlled. Okay to discharge home today
[2021-07-06 08:41] VITALS: BP 129/83; PULSE 91; RESP 18; TEMP 36.9; O2SAT 98
[2021-07-06] MEDS: Sertraline 50 MG Tablet PO (11:23)
[2021-07-06] MEDS: Pantoprazole Sodium 20 MG Tablet PO (11:23)
[2021-07-06 11:49] VITALS: BP 129/83; PULSE 91; RESP 18; TEMP 36.9; O2SAT 98
--- NOTE | 2021-07-06 13:37 | CASEMGMT ---
Social Work Assessment Labor and Delivery Unit Patient Address: [facility] [address], [place] [address] Phone number: [phone] Date of Referral: 07.04.2021 Time of Referral: [id number] Referred By: Dr. Hebert Date of Intervention: 07.06.2021 Time of Intervention: Approximately 4857-1708 Reason for Referral: Maternal mental health: PHQ9 score of 1 History obtained from: Medical records and mother of baby (MOB) Brittney Wood; father of baby (FOB) Tomas Wood present for part of conversation. Household composition: MOB and FOB have their own home. MOB and FOB's friends who, Jennifer and Henri, just moved in temporarily. Home situation is reported as safe and adequate. Patient's parent/guardian status: SHORTY is a 25 year old female, to CAYETANO for the last 5 years, together for a total of 8. SHORTY denies any form of abuse, control, intimidation in this relationship. is the first child for both and is to be named Teresa Wood, born 07.04.2022. Medical History: SHORTY is G1, P0 to 1 after delivering Teresa. Conception occurred with Letrozole used, initial treatment wit Dr. Curry. Transfer of care to [place] at 11 weeks. Baby delivered at 37 weeks. weight 6 pounds 6 ounces. Apgars 8 and 9. Educational Status: SHORTY is college educated. No issues with reading, writing, or learning. 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 Parents are real estate investors. No financial concerns reported. Infant Supplies: Parents report to have all necessary supplies including safe sleep spaces and car seat. MOB's parents also have a set of supplies at their home in case MOB and FOB need a break. Childcare/Caregiver(s): MOB and FOB. When SHORTY returns to work in December, the FOB plans to be primary care management assistant as will be quitting his factor job. Transportation: No issues. Programs/Agencies Involved: [facility]. Children Services/Legal Issues: None. Behavioral Health Issues: Mental Health History: SHORTY reports history of depression and anxiety, with history of one episode a few years back where depression was dark and MOB as the point of not caring about life. No active planning, intent, or attempts surrounding suicide. No endorsed history of thoughts of harm to others. Denies any thoughts of harm to self or suicide during this . No history of inpatient treatment, but has been treated as an outpatient with several different medications. During on Zoloft and plans to remain on this . Active with counseling asa well. Substance Use History: Denies current or past history. Family History: Family history of depression and anxiety. SHORTY's mom may have had some depression or baby blues for a few weeks. Drug Screens: No screens noted in the records. Family/Social Stressors: Infertility, conception with aid of Letrozole. MOB acquired a new job going from 5th to 7/8th grade in the last year. MOB and FOB working on selling to [employer]. Good changes, but several changes occurring in a concentrated amount of time. MOB and FOB recently allowed friends to move in who have just discharged from the . Support Systems: CAYETANO, who has up to 6 weeks off of of work. Describes [employer] as my person. SHORTY's father and mother who lives in the same neighborhood. Friends who have moved in with the MOB and FOB, with MOB reporting perception that having these friends in the home as helpful. MOB has a couple of other female friends who just had babies and would be additional support. MOB's counselor. Depression/Shaken Baby/Safe Sleeping: Reviewed safe sleeping and shaken baby. MOB able to give appropriate responses. Reviewed mood and anxiety disorders, risk factors, risk to both moms and dads, self care, and reaching out for help. ASSESSMENT: Met with MOB and FOB in room, introducing to self and social work role. Met with MOB and FOB together and then alone with MOB. MOB and FOB talkative, with MOB doing most of the talking, but FOB engaged appropriately and presenting as supportive. MOB appearing comfortable talking about mental health with the FOB, talkinga bout past history of depression in which the FOB was present for and helpful. MOB discussed the planning she and FOB have done for MOB's emotional health, as both are aware of risk for mood complications with MOB's history. MOB reports to feel to have an adequate support system, able to identify positive supports systems and people whom MOB can talk to. MOB reports plan to stay in counseling and has an appointment for next week. Plan to remain on medications. Able to voice healthy coping skills and FOB also aware of MOB's signs of when MOB is falling into depression. MOB and FOB reports to have needed supplies to care for baby and are looking forward to going home. Addressed the PHQ9 with MOB privately, and MOB discussed positive answers. Reports to feel doing okay right now and wants to be proactive with taking care of self. From conversation, MOB appears to have taken proactive steps in ensuring a support is in place, as well as is willing to talk about things when having hard days. MOB accepted packet on mood and anxiety disorders for additional resources. MOB and FOB deny any additional concerns with home going. MOB expressed thanks for social work instructor visiting and touching base about mood issues. No voiced occurs by staff regarding parent/child interactions or bonding. Observed MOB holding baby during assessment. MOB attentive and gentle. Appropriate affect and mood observed. PLAN: MOB and baby to home with MOB already established with community mental health support. No other services requested or indicated. -ZAC Ruth MSW *This note was generated with Zannelation software. It may contain incorrect words, spelling, and punctuation that were not noted in review of the chart prior to signing*
== END 2021-07-06 12:20 | disposition home or self-care (01) | DRG 807 ==
LOC: WPOUT 21:49 → WP 21:54
PROVIDERS: Admitting Provider Obstetrics & Gynecology; PCP Pediatrics; Visit Provider Obstetrics & Gynecology
DX: O70.0 First degree perineal laceration during delivery (principal); Z37.0 Single live birth; O99.344 Other mental disorders complicating childbirth; F32.A Depression, unspecified; Z3A.37 37 weeks gestation of pregnancy
CPT/HCPCS: 59025; 59050; 84112; 85025; 85461; 86850; 86900; 86901; 87426; 90384; 99218; J7120; G0378; J2405; J2790

== ENCOUNTER → 2022-09-29 | Outpatient (CLI) | payer OTHER, SELFPAY ==
[2022-09-29 17:02] LABS: Hematocrit 40.1 % (37-47); Hemoglobin 12.7 g/dL (12.0-15.0); Mean Corp Hgb Conc 31.7 g/dL (32-36); Mean Corpuscular Hgb 28.2 pg (27.0-32.0); Mean Corpuscular Volume 88.9 fL (81-99); Platelet Count 252 K/mm3 (150-450); RBC Distribution Width CV 12.9 % (11.6-14.6); RBC Distribution Width SD 42.2 fl (35.1-43.9); Red Blood Count 4.51 M/mm3 (4.2-5.4); White Blood Count 8.5 K/mm3 (4.4-11.0)
[2022-09-29 17:25] LABS: Anion Gap 8 (5-15); BUN 11 mg/dL (7-18); BUN/Creat Ratio 18.4 RATIO (10-20); Calcium,Total 9.1 mg/dL (8.5-10.1); Chloride 105 mmol/L (98-107); EST Glomerular Filtration Rate 127 mL/min (>60); Est Glom Filt Rate - Afr Amer 153 mL/min (>60); Estradiol 31.8 pg/mL; Follicle Stimulating Hormone 7.7 mIU/mL; Glucose 86 mg/dL (74-106); Luteinizing Hormone 7.4 mIU/mL; Potassium 3.6 mmol/L (3.5-5.1); Sodium Level 138 mmol/L (136-145); Thyroid Stim Hormone (TSH) 1.19 uIU/mL (0.358-3.74)
[2022-10-06 14:09] LABS: Testosterone, % Free 3.36 % (0.50-2.80); Testosterone, Free 0.81 ng/dL (0.10-0.85); Testosterone, Total 24 ng/dL (13-71)
== END | disposition home or self-care (01) ==
LOC: WOBLAB 15:59
PROVIDERS: PCP Pediatrics; Visit Provider Obstetrics & Gynecology
DX: N97.9 Female infertility, unspecified (principal)
CPT/HCPCS: 36415; 80048; 82670; 83001; 83002; 83036; 84402; 84403; 84439; 84443; 85027

== ENCOUNTER 2023-08-02 11:38 | Emergency (ER) | payer OTHER, SELFPAY ==
[2023-08-02 11:40] VITALS: BP 141/101; PULSE 95; RESP 14; TEMP 35.8; O2SAT 100; BMI 39.3
[2023-08-02 12:01] VITALS: BP 121/92; BP 138/81; BP 146/91; PULSE 94; PULSE 95; PULSE 98
--- NOTE | 2023-08-02 12:01 | CT_ITS ---
STUDY: CTA HEAD AND NECK WITH CONTRAST REASON FOR EXAM: Female, 28 years old. Vision chances, near syncope RADIATION DOSAGE (If Supplied By Facility): CTDIvol = ( 32.95 ) mGy, DLP = ( 2180.06 ) mGycm TECHNIQUE: CT angiography was performed with a multi-detector CT scanner. Data acquisition was obtained from the skull base through the vertex following intravenous administration of IV 100mL Isovue-370. MIP images were reconstructed from the axial data set. Post-processing of the angiographic images was performed, with multiplanar reformation and 3D reconstruction. Individualized dose optimization techniques were used for this CT. COMPARISON: No relevant priors. FINDINGS: Normal bilateral petrous carotid arteries. Normal right cavernous carotid artery with a normal supraclinoid bifurcation. Normal left cavernous carotid artery with a normal supraclinoid bifurcation. Normal right A1 segments of the anterior cerebral artery. Normal left A1 segments of the anterior cerebral artery. Normal intact anterior communicating artery (ACOM). Normal bilateral A2 segments of the anterior cerebral arteries. Normal right M1 and M2 segments of the middle cerebral arteries, with a normal M1 bifurcation. Normal left M1 and M2 segments of the middle cerebral arteries, with a normal M1 bifurcation. Normal right posterior communicating artery (PCOM). Normal left posterior communicating artery (PCOM). Normal bilateral vertebral arteries. Normal basilar artery with a normal basilar bifurcation. The visualized bilateral superior cerebellar (SCA) arteries are normal. Normal bilateral P1, P2 and visualized P3 segments of the posterior cerebral arteries. There is no demonstrated aneurysm of the [place]. There is no demonstrated abnormality of the visualized brain. AORTIC ARCH: Normal visualized aortic arch. Normal origins of the brachiocephalic, left common carotid, and left subclavian arteries. RIGHT CAROTID ARTERIES: Normal right common carotid artery (CCA). Normal right common carotid bulb. Normal origin of the right internal carotid (ICA) artery without a hemodynamically significant stenosis. Normal visualized cervical portion of the right internal carotid artery. Normal origin of the right external carotid artery (ECA). LEFT CAROTID ARTERIES: Normal left common carotid artery (CCA). Normal left common carotid bulb. Normal origin of the left internal carotid (ICA) artery without a hemodynamically significant stenosis. Normal visualized cervical portion of the left internal carotid artery. Normal origin of the left external carotid artery (ECA). VERTEBRAL ARTERIES: Normal bilateral vertebral arteries. CT/CTA Head AND Neck W/ Contrast IMPRESSION: Normal CTA Head and neck with contrast. Electronically Signed: Rigoberto Reno MD at 13:03 EDT ,
--- NOTE | 2023-08-02 12:02 | EDS_ITS ---
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 Patient states that she was standing when this happened. She then had some would like bright lights in the periphery of her vision. Patient had hard time focusing and concentrating. She was seen by PCP and referred to the emergency department for evaluation. Patient tells me she has a family history of brain aneurysms. She denies significant headache currently and only rates the headache of a maybe a 2 out of 10. Years ago she was diagnosed with migraines but has headaches very infrequently. Patient also states that several months ago she had some numbness and tingling to both hands that she could not explain that then resolved. She denies any head injuries or falls. Patient states that she think she might be coming down with an illness that she feels somewhat congested and has had a mild sore throat today. [facility] Medical History (Updated 08/02/23 @ 13:[address] Jayce Bear, ) Anxiety Asthma Depression Infertility Spontaneous vaginal delivery Home Medications omeprazole 20 mg capsule,delayed release 20 mg PO DAILY acid reflex 06/19/21 [History Last Taken 07/03/21 06:00] vitamn-iron carb-folic acid-docusate 95 mg-1 mg-50 mg capsule 1 cap PO DAILY Check with primary doctor 06/19/21 [History Last Taken 07/02/21 18:00] sertraline 50 mg tablet (Zoloft) 50 mg PO DAILY Check with primary doctor 06/19/21 [History Last Taken 07/03/21 06:00] Allergy/AdvReac Type Severity Reaction Status Date / Time amoxicillin Allergy Rash Verified 08/02/23 11:53 cefdinir [From Omnicef] Allergy Angioedema Verified 08/02/23 11:53 adhesive tape AdvReac Rash Verified 08/02/23 11:53 Surgical History History of surgery Social History Smoking Status: Never smoker ROS ROS ED Review of Systems ROS Unobtainable: other Constitutional Constitutional ED: Reports lethargy; Denies chills, fever(s), sweats or weight loss Eyes Eyes: Denies blurry vision, change in vision or diplopia ENT ENT ED: Reports sore throat and other Details: Tunnel vision ; Denies rhinorrhea Cardiovascular Cardiovascular: Denies chest pain, orthopnea or racing heartbeat Respiratory/Chest Respiratory/Chest: Denies cough, dyspnea, dyspnea on exertion, orthopnea or sputum Gastrointestinal Gastrointestinal: Denies abdominal pain, diarrhea, nausea or vomiting Genitourinary Genitourinary ED: Denies dysuria, hematuria or urinary frequency Musculoskeletal Musculoskeletal: Denies arthralgias, back pain, myalgias or neck pain Integumentary Denies abscess, Abrasions or rash Neurologic Neurologic: Reports headache(s); Denies weakness Psychiatric Psychiatric: Denies anxiety, depression or suicidal thoughts Endocrine Endocrinology: Denies polydipsia, polyphagia or polyuria Hematologic/Lymphatic Hematologic/Lymphatic: Denies easy bleeding, easy bruising or lymphadenopathy Allergic/Immunologic Allergic/Immunologic ED: Denies mouth swelling, tongue swelling or urticaria EXAM Physical Exam Const Vital Signs: 08/02/23 11:40 08/02/23 11:40 08/02/23 12:01 Temperature 96.5 F L Temperature Source Temporal Pulse Rate 95 95 Pulse Rate [Lying] 94 Pulse Rate [Sitting (for 1 minute prior to obtaining)] 95 Pulse Rate [Standing (for 1 minute prior to obtaining)] 98 Respiratory Rate 14 14 Blood Pressure 141/101 H 141/101 H Blood Pressure [Lying] 121/92 H Blood Pressure [Sitting (for 1 minute prior to obtaining)] 138/81 H Blood Pressure [Standing (for 1 minute prior to obtaining)] 146/91 H Blood Pressure Mean 114 114 Blood Pressure Mean [Lying] 101 Blood Pressure Mean [Sitting (for 1 minute prior to obtaining)] 100 Blood Pressure Mean [Standing (for 1 minute prior to obtaining)] 109 Pulse Ox 100 100 Oxygen Delivery Method Room Air Room Air Positive well nourished and well developed General Appearance ED: well developed and NAD HEENT Reports TM's clear and moist mucous membranes normocephalic and atraumatic; Negative for trauma or tenderness Tympanic Membrane ED: Yes TM's clear Eyes PERRL and EOMs intact bilaterally General Eye ED: Negative for pale conjunctiva or scleral icterus Neck no lymphadenopathy, supple and no JVD General: Negative for tenderness Chest Wall inspection of chest normal and palpation of chest normal Chest: Negative for tenderness Resp normal respiratory effort and clear to auscultation bilaterally Effort and Inspection: Negative for respiratory distress or pain with movement Auscultation: Negative for rhonchi, wheezes or diminished lung sounds Cardio regular rate, regular rhythm, S1 normal heart sound, S2 normal heart sound and no murmurs Peripheral Pulses: pulses 2+ throughout GI normal to inspection, nondistended, normoactive bowel sounds, soft to palpation, non-tender, non-distended and no masses Back/Spine no CVA tenderness and no thoracic nor lumbar tenderness Extremity normal to inspection General Extremety ED: Negative for edema General Extremity: Negative for edema Neuro oriented x3, CN's II-XII intact bilaterally, no sensory deficits noted and gait normal Sensorium / Orientation: awake, alert, oriented to person, oriented to place and oriented to time Motor Exam: strength 5/5 throughout and strength abnormal Psych mental status grossly normal Skin no rashes or lesions noted and no wounds MDM MDM MDM Narrative Medical decision making narrative: Patient presents with vision changes today and feeling like she is in a pass out. History of migraines. In the differential would be migraine with aura versus orthostatic hypotension or vasovagal episode. Also entertained illness such as a viral syndrome given her complaint of a scratchy throat and some congestion. Patient concerned about brain aneurysm as she has had episodes of dizziness and intermittent headaches and family history of brain aneurysms. Sent in by her primary care physician because her CT scanner is down cannot be performed acutely. IV line established on arrival. Patient did not want a thing for her headache and she rated it as a 2 out of 10. She had no focal deficits on exam. CBC with differential obtained showed white of 11.4 with hemoglobin 13.0 and platelet counts of 195. Chemistries unremarkable. Serum hCG was negative. Urinalysis was normal. CTA of the head and neck obtained showed no evidence of aneurysm or other acute disease process. This point discussed results with patient. Recommended outpatient follow-up with her primary care physician. Recommended pushing fluids. This point suspect this may be migraine versus vasovagal episode. Lab Data Attestation: I reviewed the patient's lab results. Labs: Laboratory Results - last 24 hr 08/02/23 08/02/23 12:07 12:08 WBC 11.4 H RBC 4.37 Hgb 13.0 Hct 39.4 MCV 90.2 MCH 29.7 MCHC 33.0 RDW Std Deviation 39.9 RDW Coeff of Salvatore 12.1 Plt Count 195 MPV 9.8 Immature Gran % (Auto) 0.500 Neut % (Auto) 68.2 Lymph % (Auto) 24.0 [place] % (Auto) 6.3 Eos % (Auto) 0.6 Baso % (Auto) 0.4 Absolute Neuts (auto) 7.7 Absolute Lymphs (auto) 2.73 Nucleated RBC % 0 Sodium 140 Potassium 3.8 Chloride 105 Carbon Dioxide 26.0 Anion Gap 9 BUN 10 Creatinine 0.62 Estim Creat Clear Calc 164.32 Est GFR (MDRD) Af Amer 146 Est GFR (MDRD) Non-Af 121 BUN/Creatinine Ratio 16.1 Glucose 88 Calcium 9.0 Serum , Qual NEGATIVE Urine Color Yellow Urine Clarity Clear Urine pH 6.5 Ur Specific [place] 1.010 Urine Protein Negative Urine Glucose (UA) Normal Urine Ketones 5 H Urine Occult Blood Negative Urine Nitrite Negative Urine Bilirubin Negative Urine Urobilinogen Normal Ur Leukocyte Esterase Negative Urine RBC 0 SEEN Urine WBC 0 SEEN Ur Squamous Epith Cells 0-5 SEEN Urine Bacteria 0 SEEN Urine Mucus 0 SEEN Radiography Diagnostic Testing: Clinical Impression(s) from Imaging Studies Head/Neck CTA 08/02/23 12:01 IMPRESSION: Normal CTA Head and neck with contrast. Electronically Signed: Rigoberto Reno MD at 13:03 EDT Reading Location ID and State: [address] [place] [address] , Service support , Discharge Plan Triage Chief Complaint: Vision Prob Other Complaint: Headache ED Provider: Jayce Bear Dx/Rx/DC Orders Clinical Impression: Blurred vision, Migraine Instructions: ED Blurred Vision, ED Headache Unspecified, ED Near-Fainting- Vagal Reaction Prescriptions: No Action omeprazole 20 mg Capsule,Delayed Release(Dr/Ec) 20 mg PO DAILY sertraline [Zoloft] 50 mg Tablet 50 mg PO DAILY Prena-Cap 95-1-50 mg Capsule 1 cap PO DAILY Primary Care Provider: Cesar Wheeler Referrals: Akash Black MD [Med Staff - Active Staff] - Cesar Wheeler MD [Primary Care Provider] - 3-5 Days Disposition Disposition: Home, Self Care
[2023-08-02 12:18] LABS: Absolute Lymphocyte Count 2.73 X10^3/uL (0.83-4.51); Absolute Neutrophil Count 7.7 X10^3/uL (2.0-7.7); Basophil# 0.04 X10^3/uL; Basophil% 0.4 % (0-1); Eosinophil# 0.07 X10^3/uL; Eosinophils% 0.6 % (0-5); Hematocrit 39.4 % (37-47); Lymphocyte # 2.73 X10^3/ul (0.83-4.51); Mean Corpuscular Hgb 29.7 pg (27.0-32.0); Mean Corpuscular Volume 90.2 fL (81-99); Mean Platelet Vol. 9.8 fl (6.2-12.0); Monocyte# 0.72 X10^3/uL; Monocyte% 6.3 % (0-10); NRBC Flagged by Analyzer 0 % (0-5); Neutrophil # 7.74 X10^3/uL (2.7-7.7); Neutrophil % 68.2 % (47-70); Platelet Count 195 K/mm3 (150-450); RBC Distribution Width CV 12.1 % (11.6-14.6); RBC Distribution Width SD 39.9 fl (35.1-43.9); Red Blood Count 4.37 M/mm3 (4.2-5.4); White Blood Count 11.4 K/mm3 (4.4-11.0)
[2023-08-02 12:26] LABS: Bacteria 0 SEEN /hpf (None Seen); Mucous, Urine 0 SEEN /hpf (<or=2+); Red Blood Cells-Urine 0 SEEN /hpf (0-5); White Blood Cells 0 SEEN /hpf (0-5)
[2023-08-02 12:28] LABS: Color, Urine Yellow (Yellow); Glucose, Dipstick Normal (Normal); Ketone-Dipstick 5 mg/dl (Negative); Leukocyte Esterase-Dipstick Negative /ul (Negative); Nitrite-Dipstick Negative (Negative); Occult Blood-Urine Negative /ul (Negative); Protein-Dipstick Negative (Negative); Urine Bilirubin Dipstick Negative (Negative); Urine Clarity Clear (Clear); Urine Urobilinogen Normal (Normal); Urine pH 6.5 (5.0 - 8.0)
[2023-08-02 12:30] LABS: Internal QC Validated? YES +Cl - CLEAR BKGD; Pregnancy, Serum, hCG Quali. NEGATIVE Negative
[2023-08-02 12:32] LABS: Anion Gap 9 (5-15); BUN 10 mg/dL (7-18); BUN/Creat Ratio 16.1 RATIO (10-20); Chloride 105 mmol/L (98-107); Creatinine, Serum 0.62 mg/dL (0.55-1.02); EST Glomerular Filtration Rate 121 mL/min (>60); Est Glom Filt Rate - Afr Amer 146 mL/min (>60); Estimated Creatinine Clearance 164.32 ml/min; Glucose 88 mg/dL (74-106); Potassium 3.8 mmol/L (3.5-5.1); Sodium Level 140 mmol/L (136-145)
[2023-08-02 12:46] LABS: Squamous Epithelial Cells - UA 0-5 SEEN /hpf (5-10)
[2023-08-02 14:13] VITALS: BP 130/75; PULSE 101; RESP 20; TEMP 36.6; O2SAT 94
== END 2023-08-02 14:22 | disposition home or self-care (01) ==
PROVIDERS: Emergency Provider Emergency Medicine; PCP Family Medicine; Visit Provider Emergency Medicine
DX: G43.909 Migraine, unspecified, not intractable, without status migrainosus (principal); R55 Syncope and collapse; H53.9 Unspecified visual disturbance; Z11.52 Encounter for screening for COVID-19; J02.9 Acute pharyngitis, unspecified; J45.909 Unspecified asthma, uncomplicated; F32.A Depression, unspecified; F41.9 Anxiety disorder, unspecified; Z79.899 Other long term (current) drug therapy
CPT/HCPCS: 70496; 70498; 80048; 81001; 84703; 85025; 87631; 99285